=== PATIENT | female | born 1945 | race Caucasian/White ===

== ENCOUNTER → 2018-03-30 | Outpatient (CLI) | payer OTHER ==
[~2018-03-30] VITALS: Ht 175.3 cm; Wt 149.7 kg
[~2018-03-30] MED LIST: ASPIR 8181 MG PO; EFFEXOR XR37.5 MG PO; ENTRESTO 24 MG1 EACH PO; KLOR-CON 1010 MEQ PO; LANTUS SUBQ; LOPRESSOR50 PO; MAGOX 400400 MG PO; NEURONTIN 300300 M1 PO; NORCO 5-325 TA1 EACH PO; OMEPRAZOLE40 MG PO; PACERONE100 MG PO; SINGULAIR 10 MG10 M1 PO; SPIRONOLACTONE25 MG PO; TRAZODONE HCL50 MG PO; VICTOZA0.6 MG/0.1 SUBQ
--- NOTE | ~2018-03-30 | HPC ---
[facility] [place] [address] PAIN MANAGEMENT CONSULTATION Name: LUANNE CABRERA Room #: REG JUANY Siobhan.#: [id number] Admission: 03/30/18 Attend Phys: Danilo Head DO Discharge: Date of : 43 Report #: [id number] THIS REPORT FOR: //name// CC: Danilo Diego DATE OF SERVICE: 03/30/2018 REFERRING PHYSICIAN: Karthik Stanton M.D. CHIEF COMPLAINT: Low back pain, right lower extremity pain with paresthesias and intermittent left lower extremity pain with paresthesias. HISTORY OF PRESENT ILLNESS: As you know, the patient is a class 3, morbidly obese 73-year-old female who has had longstanding history of low back pain, right lower extremity pain and intermittent left lower extremity pain. The patient states she has had an exacerbation of symptoms began 03/03/2018. The patient has been referred to our clinic to discuss the possibility of epidural injections. She sought evaluation with Dr. Stanton at [facility] and started on gabapentin 300 mg dose 3 times a day. She wished to start physical therapy for lumbar stabilization and to be seen back in 1 month. Apparently, she was unable to tolerate this conservative treatment. The patient was subsequently referred to our services. She comes to us today without x-ray imaging or MRI of the lumbar back to be able to determine the pathology that exists. The patient describes her pain today as continuous, constant, intermittent, describes the pain as shooting, aching, pulling, gnawing, throbbing, sharp, stabbing, numbness and tingling. Places the current pain score at 6/10, daily average at 6/10, worst pain has been is 10/10. The patient states that activities and standing exacerbate symptoms. Pain is improved with "finding the right position in a chair or bed." She has been referred to our service to discuss the possibility of undergoing a lumbar epidural injection. PAST MEDICAL HISTORY: 1. Cervical radiculitis. 2. Cervical spondylosis with radicular symptoms. 3. Chronic low back pain. 4. Hypertension. 5. Class 3 morbid obesity. 6. Seasonal allergies. 7. Insulin-dependent diabetes. 8. Gastroesophageal reflux disease. 9. Depression. 10. Chronic anemia. [address] [address] PAIN MANAGEMENT CONSULTATION Name: LUANNE CABRERA Room #: REG [facility] Siobhan.#: [id number] Admission: 03/30/18 Attend Phys: Danilo Head DO Discharge: Date of : 43 Report #: [id number] 11. Asthma. 12. History of thyroid disease. 13. Coronary artery disease. PAST SURGICAL HISTORY: 1. Cholecystectomy. 2. Partial thyroidectomy. 3. Appendectomy 4. Knee surgery. 5. Foot surgery. 6. Hysterectomy. SOCIAL HISTORY: The patient denies tobacco, alcohol, IV or illicit drug use. She is retired, retired years ago, not receiving workmen's compensation nor is she trying to obtain disability benefits. She is not in litigation in regards to pain. She is accompanied by her , present in room today. REVIEW OF SYSTEMS: Positive for fatigue and weakness, wearing corrective eyewear, hearing loss with tinnitus, eye disease, blurred vision, cataracts, chronic sinus problems with rhinitis, shortness of breath with any activity, heart trouble, frequent and recurrent coughs, asthma, wheezing, changes in bowel movements, frequent diarrhea, nocturia, incontinence, dribbling to urine, frequent urination, lightheadedness, dizziness, numbness and tingling sensations, memory loss with confusion, nervousness, depression, insomnia, thyroid disease, insulin-dependent diabetes, excessive thirst, urination, anemia, enlarged glands and class 3 morbid obesity. All other review of systems negative per 12-point review of systems other than those listed in history of present illness. PAIN SCORE: Pain impact score of 70/70 indicating complete interference of daily activities secondary to pain. ALLERGIES: IV CONTRAST AGENT and DICLOFENAC. CURRENT MEDICATIONS: Montelukast sodium 10 mg a day, magnesium oxide 400 mg once a day, hydrocodone 5/325 one tab p.o. q. 6 hours p.r.n. for pain, potassium chloride 10 mEq p.o. every day, Victoza 0.6 mg/0.1 mL pen injected once a day, Lantus 3 times a day, trazodone 50 mg p.o. at bedtime, omeprazole 40 mg per day, gabapentin 300 mg 3 times a day, aspirin 81 mg per day, venlafaxine 37.5 mg once a day, Pacerone 100 mg once a day, metoprolol 50 mg twice a day, spironolactone 25 mg once a day and Entresto 24 mg/26 mg tablet once a day. IMAGING DATA: No imaging available. PQRS: The patient has osteoarthritis of the low back, bilateral hips and bilateral knees. No rheumatoid arthritis. She places pain intensity today is [address] [address] PAIN MANAGEMENT CONSULTATION Name: LUANNE CABRERA Room #: REG JUANY Retana#: [id number] Admission: 03/30/18 Attend Phys: Danilo Head DO Discharge: Date of : 43 Report #: [id number] 03/09. She is a fall risk but has not had fallen in the last 3 months. She is using a wheelchair for mobility. She is not on blood thinner. She is treated for hypertension. She is on opioids provided by another physician. She has a low risk for opioid addiction potential. She paces pain impact score 70/70, complete interference of daily activity. PHYSICAL EXAMINATION: VITAL SIGNS: Blood pressure 134/61, pulse 75 and respiratory rate 18 and unlabored. The patient is 97% on room air. Height 5 feet 9 inches tall, weight 330 pounds and BMI calculated 48.7. GENERAL: Well-developed, well-nourished, well-hydrated, class 3 morbidly obese 73-year-old female. She appears stated age. She is placing current pain score 10/10. HEENT: Normocephalic and atraumatic. Pupils equal, round and reactive to light. Extraocular muscles are intact. Sclerae nonicteric without injection. NEUROLOGICAL: Cranial nerves 2 through 12 grossly intact. Speech is fluent. The patient deemed a fair historian. LUNGS: Clear. No wheeze, rhonchi or rales. CARDIOVASCULAR: Regular. No appreciable gallop and no rub. ABDOMEN: Soft. Severely obese. Normoactive bowel sounds. EXTREMITIES: Show no clubbing and no cyanosis. There is 2+ nonpitting lower extremity edema on the right, 1.5+ nonpitting lower extremity edema on the left. Gait is antalgic. Stance is forward flexed lumbar spine, loss of lordotic curvature. Seated straight leg raising negative. Supine straight leg raising is negative. Natalie's test is negative. Modified Gaenslen's positive for axial low back pain. Ankle clonus negative. Babinski is negative. Muscle bulk and tone equal and symmetrical in the lower extremities and deconditioning noted bilaterally. ASSESSMENT: 1. Lumbar radiculopathy. 2. Lumbosacral spondylosis with radiculopathy. 3. Chronic low back pain. 4. Lumbar degeneration. 5. Chronic intractable pain. PLAN: 1. The patient has been referred to our service by her physical med and rehab physician for evaluation for possible lumbar radiculopathy. She comes to us today reporting pain score 10/10 with pain radiating from the low back down the right leg consistently and intermittently down the left leg. The patient comes to us without x-ray imaging, so it is difficult to determine the extent of changes that may be in the low back. We have discussed with the patient that we would move forward with the requested epidural injection that will require authorization but in the interim, we will request the patient to undergo a CT examination of the lumbar spine for further evaluation. [place] [address] PAIN MANAGEMENT CONSULTATION Name: LUANNE CABRERA FLOR Room #: REG JUANY Retana#: [id number] Admission: 03/30/18 Attend Phys: Danilo Head DO Discharge: Date of : 43 Report #: [id number] better direct the patient's care and to determine the level of pathology existing in the low back to which we may need to have the patient be seen from the surgical standpoint. The following was discussed with the patient today. 2. The patient and I will begin the process of preauthorization for lumbar epidural injection. Authorization could take anywhere from 4-7 working days, begin this process immediately. Once we have achieved this authorization, we will have the patient return to undergo an epidural injection under fluoroscopic guidance to address her low back symptoms and lower extremity symptoms. The patient will be contacted once the authorization has been obtained to establish the next appointment. 3. We have requested the patient contact referring physician and undergo imaging studies of the low back. X-ray imaging will provide is only minimal information, we will need something with a higher level of evaluation capabilities. The patient cannot undergo an MRI due to a pacemaker placement she reports today. Recommend CT of the lumbar spine without contrast. The patient will contact the referring physician to have the CT obtained. We will review the mcg once it is available and hopefully, we will have that before her return visit, so that we can discuss at length the findings therein and how treatment can be best directed. We made no changes in today's medication management. The patient will continue current medical therapy as previously prescribed. 4. We will see the patient back in followup visit once she has completed her CT of the lumbar spine without contrast and we have received the approval for a lumbar epidural injection. At that time, we will determine if this injection will be necessary or possible referral toward surgical options if the CT shows significant pathology. 5. We wish to thank Dr. Stanton for the referral of the patient to our clinic. We will see her back once we have achieved the authorization to undergo epidural injection and she has completed the requested CT examination above. We will keep you apprised of response to the treatment deemed necessary to address her low back pain. Again, we wish to thank you for the opportunity to see the patient in consultation. <ELECTRONICALLY SIGNED> By: Danilo Head DO 04/01/18 [id number] Danilo Head DO /nt
[2018-03-30 13:31] VITALS: BP 134/61
== END ==
LOC: PAIN 10:05
DX: M47.27 Other spondylosis with radiculopathy, lumbosacral region (principal); G89.4 Chronic pain syndrome; M54.5 Low back pain; M47.896 Other spondylosis, lumbar region